=== PATIENT | female | born 1985 | race Hispanic/Latino ===

== ENCOUNTER 2017-04-09 13:08 | Emergency (ER) | payer MEDICAID ==
[2017-04-09 14:40] LABS: APPEARANCE,URINE Clear (CLEAR); BILIRUBIN,URINE Negative (NEGATIVE); COLOR,URINE Yellow (YELLOW); GLUCOSE, URINE (UA) Negative (NEGATIVE); KETONES,URINE Negative (NEGATIVE); LEUKOCYTE ESTERASE ,URINE Negative (NEGATIVE); NITRATE,URINE Positive (NEGATIVE); OCCULT BLOOD,URINE Negative (NEGATIVE); PROTEIN,URINE Negative (NEGATIVE)
[2017-04-09 14:43] LABS: HCG,QUAL RESULT NEGATIVE (NEGATIVE)
[2017-04-09 14:55] LABS: BACTERIA,URINE Many /HPF (None Seen); SQUAMOUS EPITHELIAL CELL,UR Few /LPF (0-2); WBC,URINE 0-1 /HPF (0-1)
[2017-04-09] MEDS ORDERED: KETOROLAC TROMETHAMINE 30MG/ML ONE (14:55)
== END 2017-04-09 15:03 | disposition home or self-care (01) ==
LOC: EDH 13:08
DX: S40.021A Contusion of right upper arm, initial encounter (principal); S80.11XA Contusion of right lower leg, initial encounter; Z90.49 Acquired absence of other specified parts of digestive tract; Z98.890 Other specified postprocedural states; W11.XXXA Fall on and from ladder, initial encounter; Y93.89 Activity, other specified; Y92.89 Other specified places as the place of occurrence of the external cause; Y99.8 Other external cause status
CPT/HCPCS: 81001; 81025; 96372; 99284; J1885

== ENCOUNTER 2017-06-27 13:48 | Emergency (ER) | payer MEDICAID ==
[2017-06-27 14:37] LABS: APPEARANCE,URINE Clear (CLEAR); BILIRUBIN,URINE Negative (NEGATIVE); COLOR,URINE Yellow (YELLOW); GLUCOSE, URINE (UA) Negative (NEGATIVE); KETONES,URINE Negative (NEGATIVE); LEUKOCYTE ESTERASE ,URINE Negative (NEGATIVE); NITRATE,URINE Negative (NEGATIVE); OCCULT BLOOD,URINE Trace (NEGATIVE); PH,URINE 7.5 (5.0-8.0); PROTEIN,URINE Negative (NEGATIVE)
[2017-06-27 14:39] LABS: HCG,QUAL RESULT NEGATIVE (NEGATIVE)
[2017-06-27] MEDS ORDERED: SODIUM CHLORIDE 0.9% 1000ML 1,000 ML IV ONE (14:50)
[2017-06-27] MEDS ORDERED: KETOROLAC TROMETHAMINE 30MG/ML ONE (14:50)
[2017-06-27] MEDS ORDERED: ONDANSETRON HCL MDV 20ML 2 MG/ML VIAL ONE (14:50)
[2017-06-27 14:52] LABS: BACTERIA,URINE Few /HPF (None Seen); RBC,URINE 0-1 /HPF (0-1); SQUAMOUS EPITHELIAL CELL,UR 0-2 /HPF (0-2); WBC,URINE None Seen /HPF (0-1)
[2017-06-27 14:52] LABS: BASOPHILS % (AUTO) 0.5 % (0.0-5.0); HEMATOCRIT 40.3 % (36-48); LYMPHOCYTES % (AUTO) 8.6 % (21.0-51.0); MEAN CORPUSCULAR HGB CONC 33.4 g/dL (32.0-36.0); MEAN CORPUSCULAR VOLUME 83.8 fL (79-99); MONOCYTES % (AUTO) 7.7 % (3.0-13.0); NEUTROPHILS % (AUTO) 83.2 % (40.0-77.0); PLATELET COUNT (AUTO) 259 K/uL (130-400); RED BLOOD CELL COUNT(AUTO) 4.81 MIL/uL (4.00-5.50)
[2017-06-27 15:08] LABS: CREATININE 0.7 mg/dL (0.5-1.5); POTASSIUM 3.6 mmol/L (3.5-5.1)
[2017-06-27 15:13] LABS: ALBUMIN 3.5 g/dL (3.5-5.0); BILIRUBIN,TOTAL 0.3 mg/dL (0.2-1.0); TOTAL PROTEIN, SERUM 7.6 g/dL (6.0-8.3)
== END 2017-06-27 15:43 | disposition home or self-care (01) ==
LOC: EDH 13:48
DX: B34.9 Viral infection, unspecified (principal); N94.6 Dysmenorrhea, unspecified; Z72.0 Tobacco use
CPT/HCPCS: 36415; 71045; 80053; 81001; 81025; 85025; 87040 ×2; 87088; 87804 ×2; 87880; 99285; J1885; J7030

== ENCOUNTER 2017-10-31 11:29 | Emergency (ER) | payer MEDICAID ==
[2017-10-31 12:02] LABS: APPEARANCE,URINE Clear (CLEAR); BILIRUBIN,URINE Negative (NEGATIVE); COLOR,URINE Yellow (YELLOW); GLUCOSE, URINE (UA) Negative (NEGATIVE); HCG,QUAL RESULT POSITIVE (NEGATIVE); KETONES,URINE Negative (NEGATIVE); LEUKOCYTE ESTERASE ,URINE Large (NEGATIVE); NITRATE,URINE Negative (NEGATIVE); OCCULT BLOOD,URINE Negative (NEGATIVE); PROTEIN,URINE Negative (NEGATIVE)
[2017-10-31 12:24] LABS: BACTERIA,URINE Moderate /HPF (None Seen); MUCUS,URINE Moderate LPF (None Seen); RBC,URINE 0-1 /HPF (0-1)
[2017-10-31] MEDS ORDERED: CEFTRIAXONE SODIUM 1 GM ONE (12:29)
[2017-10-31] MEDS ORDERED: SODIUM CHLORIDE 0.9% 1000ML 1,000 ML IV ONE (12:29)
[2017-10-31 12:47] LABS: CREATININE 0.5 mg/dL (0.5-1.5); POTASSIUM 3.6 mmol/L (3.5-5.1)
[2017-10-31 12:48] LABS: BASOPHILS % (AUTO) 0.5 % (0.0-5.0); HEMATOCRIT 37.6 % (36-48); LYMPHOCYTES % (AUTO) 22.3 % (21.0-51.0); MEAN CORPUSCULAR HEMOGLOBIN 29.2 pg (27.0-33.0); MEAN CORPUSCULAR HGB CONC 34.2 g/dL (32.0-36.0); MEAN CORPUSCULAR VOLUME 85.5 fL (79-99); MONOCYTES % (AUTO) 5.1 % (3.0-13.0); NEUTROPHILS % (AUTO) 72.1 % (40.0-77.0); PLATELET COUNT (AUTO) 251 K/uL (130-400); RED CELL DISTRIBUTION WIDTH 13.9 % (11.0-15.5); WHITE BLOOD COUNT (AUTO) 8.1 K/uL (4.8-10.8)
[2017-10-31] MEDS ORDERED: ONDANSETRON HCL 4 MG/2 ML VIAL ONE (13:21)
== END 2017-10-31 13:30 | disposition home or self-care (01) ==
LOC: EDH 11:29
DX: O23.41 Unspecified infection of urinary tract in pregnancy, first trimester (principal); R10.31 Right lower quadrant pain; R10.32 Left lower quadrant pain; Z87.891 Personal history of nicotine dependence; Z3A.10 10 weeks gestation of pregnancy
CPT/HCPCS: 36415; 76801; 80048; 81001; 81025; 84702; 85025; 96374; 96375; 99285; J0696; J2405; J7030

== ENCOUNTER 2017-11-27 15:13 | Emergency (ER) | payer MEDICAID ==
[2017-11-27 16:09] LABS: BASOPHILS % (AUTO) 0.1 % (0.0-5.0); EOSINOPHILS % (AUTO) 0.1 % (0.0-8.0); HEMATOCRIT 37.1 % (36-48); LYMPHOCYTES % (AUTO) 16.3 % (21.0-51.0); MEAN CORPUSCULAR HEMOGLOBIN 28.2 pg (27.0-33.0); MEAN CORPUSCULAR HGB CONC 33.5 g/dL (32.0-36.0); MEAN CORPUSCULAR VOLUME 84.1 fL (79-99); MONOCYTES % (AUTO) 3.3 % (3.0-13.0); NEUTROPHILS % (AUTO) 80.2 % (40.0-77.0); PLATELET COUNT (AUTO) 249 K/uL (130-400); RED BLOOD CELL COUNT(AUTO) 4.41 MIL/uL (4.00-5.50); RED CELL DISTRIBUTION WIDTH 13.7 % (11.0-15.5); WHITE BLOOD COUNT (AUTO) 12.8 K/uL (4.8-10.8)
[2017-11-27 16:23] LABS: APPEARANCE,URINE Clear (CLEAR); BILIRUBIN,URINE Negative (NEGATIVE); COLOR,URINE Yellow (YELLOW); GLUCOSE, URINE (UA) Negative (NEGATIVE); KETONES,URINE Negative (NEGATIVE); LEUKOCYTE ESTERASE ,URINE Small (NEGATIVE); NITRATE,URINE Negative (NEGATIVE); OCCULT BLOOD,URINE Negative (NEGATIVE); PH,URINE 5.5 (5.0-8.0); PROTEIN,URINE Negative (NEGATIVE); UROBILINOGEN,URINE 0.2 mg/dL (0.2-1.0)
[2017-11-27 16:31] LABS: BACTERIA,URINE Rare /HPF (None Seen); RBC,URINE None Seen /HPF (0-1); WBC,URINE 0-1 /HPF (0-1)
== END 2017-11-27 17:11 | disposition home or self-care (01) ==
LOC: EDH 15:13
DX: O20.0 Threatened abortion (principal); Z3A.14 14 weeks gestation of pregnancy; Z79.899 Other long term (current) drug therapy; Z90.49 Acquired absence of other specified parts of digestive tract; Z98.890 Other specified postprocedural states; Z87.891 Personal history of nicotine dependence
CPT/HCPCS: 36415; 81001; 85025

== ENCOUNTER 2018-12-05 08:19 | Emergency (ER) | payer MEDICAID, OTHER ==
[2018-12-05 09:04] LABS: APPEARANCE,URINE Clear (CLEAR); BILIRUBIN,URINE Negative (NEGATIVE); COLOR,URINE Yellow (YELLOW); GLUCOSE, URINE (UA) Negative (NEGATIVE); KETONES,URINE Negative (NEGATIVE); LEUKOCYTE ESTERASE ,URINE Negative (NEGATIVE); NITRATE,URINE Negative (NEGATIVE); OCCULT BLOOD,URINE Negative (NEGATIVE); PROTEIN,URINE Negative (NEGATIVE)
[2018-12-05 09:13] LABS: HCG,QUAL RESULT POSITIVE (NEGATIVE)
[2018-12-05 09:22] LABS: CREATININE 0.6 mg/dL (0.5-1.5); POTASSIUM 3.8 mmol/L (3.5-5.1)
[2018-12-05 09:27] LABS: ALBUMIN 3.2 g/dL (3.5-5.0); BASOPHILS % (AUTO) 0.5 % (0.0-5.0); BILIRUBIN,TOTAL 0.2 mg/dL (0.2-1.0); EOSINOPHILS % (AUTO) 2.4 % (0.0-8.0); HEMATOCRIT 37.4 % (36-48); LYMPHOCYTES % (AUTO) 21.6 % (21.0-51.0); MEAN CORPUSCULAR HEMOGLOBIN 28.4 pg (27.0-33.0); MEAN CORPUSCULAR HGB CONC 34.5 g/dL (32.0-36.0); MEAN CORPUSCULAR VOLUME 82.3 fL (79-99); MONOCYTES % (AUTO) 5.1 % (3.0-13.0); NEUTROPHILS % (AUTO) 70.4 % (40.0-77.0); PLATELET COUNT (AUTO) 314 K/uL (130-400); RED BLOOD CELL COUNT(AUTO) 4.54 MIL/uL (4.00-5.50); RED CELL DISTRIBUTION WIDTH 14.8 % (11.0-15.5); TOTAL PROTEIN, SERUM 7.4 g/dL (6.0-8.3); WHITE BLOOD COUNT (AUTO) 11.7 K/uL (4.8-10.8)
== END 2018-12-05 11:25 | disposition home or self-care (01) ==
LOC: EDH 08:19
DX: O26.891 Other specified pregnancy related conditions, first trimester (principal); K59.00 Constipation, unspecified; Z98.890 Other specified postprocedural states; Z90.49 Acquired absence of other specified parts of digestive tract; Z3A.01 Less than 8 weeks gestation of pregnancy
CPT/HCPCS: 36415; 76705; 76801; 80053; 81003; 81025; 83690; 84702; 85025

== ENCOUNTER 2019-01-02 15:37 | Emergency (ER) | payer MEDICAID, OTHER ==
[2019-01-02 16:36] LABS: APPEARANCE,URINE Cloudy (CLEAR); BILIRUBIN,URINE Negative (NEGATIVE); COLOR,URINE Yellow (YELLOW); GLUCOSE, URINE (UA) Negative (NEGATIVE); KETONES,URINE Trace mg/dL (NEGATIVE); LEUKOCYTE ESTERASE ,URINE Small (NEGATIVE); NITRATE,URINE Negative (NEGATIVE); OCCULT BLOOD,URINE Negative (NEGATIVE); PH,URINE 5.5 (5.0-8.0); PROTEIN,URINE Negative (NEGATIVE)
[2019-01-02 16:38] LABS: HCG,QUAL RESULT POSITIVE (NEGATIVE)
[2019-01-02 16:39] LABS: BASOPHILS % (AUTO) 0.3 % (0.0-5.0); HEMATOCRIT 39.6 % (36-48); LYMPHOCYTES % (AUTO) 15.8 % (21.0-51.0); MEAN CORPUSCULAR HEMOGLOBIN 27.3 pg (27.0-33.0); MEAN CORPUSCULAR HGB CONC 33.4 g/dL (32.0-36.0); MEAN CORPUSCULAR VOLUME 81.8 fL (79-99); MONOCYTES % (AUTO) 3.9 % (3.0-13.0); PLATELET COUNT (AUTO) 323 K/uL (130-400); RED BLOOD CELL COUNT(AUTO) 4.83 MIL/uL (4.00-5.50); RED CELL DISTRIBUTION WIDTH 14.4 % (11.0-15.5); WHITE BLOOD COUNT (AUTO) 12.6 K/uL (4.8-10.8)
[2019-01-02 16:43] LABS: CREATININE 0.5 mg/dL (0.5-1.5); POTASSIUM 3.4 mmol/L (3.5-5.1)
[2019-01-02 16:44] LABS: AMPHET/METH SCREEN,URINE NEGATIVE (NEGATIVE); BACTERIA,URINE Few /HPF (None Seen); BARBITURATE SCREEN, URINE NEGATIVE (NEGATIVE); BENZODIAZEPINES SCREEN,URINE NEGATIVE (NEGATIVE); CANNABINOID SCREEN,URINE NEGATIVE (NEGATIVE); COCAINE SCREEN,URINE NEGATIVE (NEGATIVE); MUCUS,URINE Moderate LPF (None Seen); OPIATE SCREEN,URINE NEGATIVE (NEGATIVE); PHENCYCLIDINE SCREEN,URINE NEGATIVE (NEGATIVE); SQUAMOUS EPITHELIAL CELL,UR 0-2 /HPF (0-2)
[2019-01-02 16:47] LABS: ALBUMIN 3.1 g/dL (3.5-5.0); BILIRUBIN,TOTAL 0.3 mg/dL (0.2-1.0); TOTAL PROTEIN, SERUM 7.6 g/dL (6.0-8.3)
== END 2019-01-02 16:59 | disposition home or self-care (01) ==
LOC: EDH 15:37
DX: O99.341 Other mental disorders complicating pregnancy, first trimester (principal); F41.1 Generalized anxiety disorder; F45.8 Other somatoform disorders; R06.02 Shortness of breath; Z90.49 Acquired absence of other specified parts of digestive tract; Z3A.10 10 weeks gestation of pregnancy
CPT/HCPCS: 36415; 80053; 80305; 81001; 81025; 83690; 85025

== ENCOUNTER 2019-07-18 05:42 | Inpatient (IN) | payer MEDICAID ==
[~2019-07-18] VITALS: Ht 165.1 cm; Wt 111.1 kg
[2019-07-18] MEDS ORDERED: CEFAZOLIN SODIUM 1 GM VIAL IVP PRN (06:15)
[2019-07-18] MEDS ORDERED: LACTATED RINGERS 1000ML 1,000 ML IV SCH (06:15)
[2019-07-18 06:27] LABS: HEMATOCRIT 32.3 % (36-48); MEAN CORPUSCULAR VOLUME 74.4 fL (79-99); PLATELET COUNT (AUTO) 331 K/uL (130-400); RED BLOOD CELL COUNT(AUTO) 4.34 MIL/uL (4.00-5.50); RED CELL DISTRIBUTION WIDTH 16.3 % (11.0-15.5); WHITE BLOOD COUNT (AUTO) 13.6 K/uL (4.8-10.8)
[2019-07-18 06:53] LABS: APPEARANCE,URINE CLEAR (CLEAR); BILIRUBIN,URINE NEGATIVE (NEGATIVE); COLOR,URINE YELLOW (YELLOW); GLUCOSE, URINE (UA) NEGATIVE (NEGATIVE); KETONES,URINE NEGATIVE (NEGATIVE); LEUKOCYTE ESTERASE ,URINE SMALL (NEGATIVE); NITRATE,URINE NEGATIVE (NEGATIVE); OCCULT BLOOD,URINE NEGATIVE (NEGATIVE); PROTEIN,URINE NEGATIVE (NEGATIVE); UROBILINOGEN,URINE 0.2 mg/dL (0.2-1.0)
[2019-07-18] MEDS ORDERED: METOCLOPRAMIDE 10 MG/2 ML VIAL IVP SCH (07:09)
[2019-07-18] MEDS ORDERED: CITRIC ACID/SODIUM CITRATE 30 ML UDCUP PO SCH (07:09)
[2019-07-18] MEDS ORDERED: OXYTOCIN-LR 20 UNITS/1000 ML 2,000 ML IV ONE (07:11)
[2019-07-18] MEDS ORDERED: CALDOLOR 800MG+NS 250ML 250 ML IV ONE (07:12)
[2019-07-18] MEDS ORDERED: CALDOLOR 800MG+NS 250ML 250 ML IV PRN (07:15)
[2019-07-18] MEDS ORDERED: DURAMORPH PF1 MG/ML 10ML AMP IV ONE (07:16)
[2019-07-18] MEDS ORDERED: ONDANSETRON HCL 4 MG/2 ML VIAL ONE (07:17)
[2019-07-18] MEDS ORDERED: FENTANYL CITRATE PF 50 MCG/1 ML 2ML VIAL ONE (07:17)
[2019-07-18 07:44] LABS: BACTERIA,URINE Rare /HPF (None Seen); RBC,URINE 0-1 /HPF (0-1); WBC,URINE 0-1 /HPF (0-1)
[2019-07-18] MEDS ORDERED: PHENYLEPHRINE HCL 10 MG/ML 1ML VIAL IV ONE (09:46)
[2019-07-18] MEDS ORDERED: MEPERIDINE-PF 75 MG/ML SYG IM PRN (10:30)
[2019-07-18] MEDS ORDERED: SODIUM CHLORIDE 0.9% 10 ML VIAL IVP PRN (10:30)
[2019-07-18] MEDS ORDERED: OXYTOCIN-LR 20 UNITS/1000 ML 1,000 ML IV PRN (10:30)
[2019-07-18] MEDS ORDERED: DEXTROSE 5 %-0.45 % NACL 1,000 ML IV PRN (10:30)
[2019-07-18] MEDS ORDERED: PROMETHAZINE HCL 25 MG/ML 1ML AMPULE IM PRN (10:30)
[2019-07-18] MEDS ORDERED: ONDANSETRON HCL 4 MG/2 ML VIAL IVP PRN (11:30)
[2019-07-18] MEDS ORDERED: NALOXONE HCL 0.4 MG/1 ML ML IVP PRN ×2 (11:30)
[2019-07-18 12:00] VITALS: BP 134/76
[2019-07-18 14:12] LABS: RAPID PLASMA REAGIN NONREACTIVE (NONREACTIVE)
[2019-07-18 16:33] VITALS: BP 143/85
[2019-07-18] MEDS: DiphenhydrAMINE HCL 50 MG/ML VIAL IVP PRN (16:44)
[2019-07-18] MEDS ORDERED: PNV#1COM14 PO (17:59)
[2019-07-18] MEDS: CALDOLOR 800MG+NS 250ML 250 ML IV SCH (18:05)
[2019-07-18] MEDS ORDERED: HYDROCODONE/ACETAMINOPHEN 5/325 MG TAB PO PRN (18:45)
[2019-07-18] MEDS ORDERED: LANOLIN 30GM OINTMENT TP PRN (18:45)
[2019-07-18] MEDS ORDERED: BISACODYL 10 MG SUPP.RECT RC PRN (18:45)
[2019-07-18] MEDS ORDERED: ACETAMINOPHEN-CODEINE 300/30MG TAB PO PRN (18:45)
[2019-07-18] MEDS ORDERED: ACETAMINOPHEN EXTRA STRENGTH 500 MG TABLET PO PRN (18:45)
[2019-07-18 19:32] VITALS: BP 126/54
[2019-07-18] MEDS: DOCUSATE SODIUM 100 MG CAP PO SCH (20:40)
[2019-07-18 23:23] VITALS: BP 113/69
[2019-07-19] MEDS: CALDOLOR 800MG+NS 250ML 250 ML IV SCH (02:24)
[2019-07-19 03:27] VITALS: BP 127/70
[2019-07-19] MEDS: DiphenhydrAMINE HCL 50 MG/ML VIAL IVP PRN (05:03)
--- NOTE | 2019-07-19 05:03 | NUR ---
PT. MED FOR C/O ITCHING; NO REDNESS OR RASHES NOTED ON SKIN.
--- NOTE | 2019-07-19 05:59 | NUR ---
PT SLEEPY, DENIED FURTHER ITCHING.
--- NOTE | 2019-07-19 06:30 | NUR ---
CHARMAINE GILES, PT. INST TO CALL FOR ASSIST BEFORE GETTING OUT OF BED, VERBALIZED UNDERSTANDING. Addendum: 07/19/19 at 0642 by TRUDI NIEVES RN RN Amended: Links added.
[2019-07-19 07:07] LABS: HEMATOCRIT 28.2 % (36-48); MEAN CORPUSCULAR HEMOGLOBIN 23.4 pg (27.0-33.0); MEAN CORPUSCULAR HGB CONC 30.9 g/dL (32.0-36.0); MEAN CORPUSCULAR VOLUME 75.8 fL (79-99); RED BLOOD CELL COUNT(AUTO) 3.72 MIL/uL (4.00-5.50); RED CELL DISTRIBUTION WIDTH 16.2 % (11.0-15.5); WHITE BLOOD COUNT (AUTO) 10.8 K/uL (4.8-10.8)
[2019-07-19 07:15] LABS: HEPATITIS Bs ANTIGEN SCREEN P Negative (Negative)
[2019-07-19 07:37] VITALS: BP 130/72
[2019-07-19] MEDS: SIMETHICONE 80 MG TAB.CHEW PO PRN ×2 (09:41→16:35)
[2019-07-19] MEDS: DOCUSATE SODIUM 100 MG CAP PO SCH (09:41)
[2019-07-19] MEDS: IBUPROFEN 800 MG TAB PO PRN ×2 (09:41→16:36)
[2019-07-19] MEDS ORDERED: IBUPROFEN 600 MG TABLET PO PRN (11:00)
[2019-07-19 11:48] VITALS: BP 143/90
--- NOTE | 2019-07-19 13:30 | NUR ---
DR. SMITH ROUNDED AND DISCHARGED PATIENT TO HOME. PATIENT IS STABLE AND DENIES PAIN.
[2019-07-19 16:23] VITALS: BP 145/87
--- NOTE | 2019-07-19 16:30 | NUR ---
C/O HAVING PAIN OF 4-5 AND WAS MEDICATED WITH MOTRIN 800GMS. STATES FEELING A SLIGHT HEADACHE.
--- NOTE | 2019-07-19 17:30 | NUR ---
DISCHARGE INSTRUCTIONS GIVEN AND VERBALIZED UNDERSTANDING INSTRUCTIONS. SCRIPT FOR PAIN MANAGEMENT ISSUED AND INSTRUCTED ON DOSAGE AND FREQUENCY OF MEDICATION. PATIENT STABLE AND STATES DOING BETTER WITH PAIN AFTER MEDICATED WITH MOTRIN. PATIENT IN BED FEEDING BABY.
--- NOTE | 2019-07-19 18:25 | NUR ---
PATIENT WAS TAKEN VIA W/C CARRYING BABY IN ARMS TO FAMILY VEHICLE AND WAS DISCHARGED TO HER SIGNIFICANT OTHER IN STABLE CONDITION.
== END 2019-07-19 18:25 | disposition home or self-care (01) | DRG 539 ==
LOC: LDH 05:42 → EDSTATUS 07:00 → WSH 11:51
PROVIDERS: ADMIT Obstetrics & Gynecology; ATTEND Obstetrics & Gynecology
PROC: 0UB50ZZ Excision of Right Fallopian Tube, Open Approach (ICD-10-PCS; 2019-07-18)
PROC: 10D00Z1 Extraction of Products of Conception, Low, Open Approach (ICD-10-PCS; principal; 2019-07-18 07:00)
DX: O34.211 Maternal care for low transverse scar from previous cesarean delivery (principal); K21.9 Gastro-esophageal reflux disease without esophagitis; O99.62 Diseases of the digestive system complicating childbirth; Z37.0 Single live birth; Z3A.39 39 weeks gestation of pregnancy; Z30.2 Encounter for sterilization
CPT/HCPCS: 36415; 59510; 81001; 85027; 86592; 86701; 86850; 86900; 86901; 87340; 87390; 88302; A4344; G0378; J0690; J1200; J1741; J2274; J2370; J2405; J2590; J3010; J7120

== ENCOUNTER 2020-08-27 15:59 | Emergency (ER) | payer MEDICAID ==
[~2020-08-27] VITALS: Ht 165.1 cm; Wt 97.5 kg
[~2020-08-27 15:59] MED LIST: PNV#1COM14 PO
[2020-08-27 16:01] VITALS: BP 155/92
[2020-08-27 16:55] VITALS: BP 163/93
[2020-08-27 17:23] LABS: APPEARANCE,URINE Clear (CLEAR); BILIRUBIN,URINE Negative (NEGATIVE); COLOR,URINE Yellow (YELLOW); GLUCOSE, URINE (UA) Negative (NEGATIVE); KETONES,URINE Negative (NEGATIVE); LEUKOCYTE ESTERASE ,URINE Trace (NEGATIVE); NITRATE,URINE Negative (NEGATIVE); OCCULT BLOOD,URINE Large (NEGATIVE); PH,URINE 7.5 (5.0-8.0); PROTEIN,URINE Negative (NEGATIVE)
[2020-08-27 17:25] LABS: HCG,QUAL RESULT NEGATIVE (NEGATIVE)
[2020-08-27 17:26] VITALS: BP 133/84
[2020-08-27 17:42] LABS: BACTERIA,URINE Few /HPF (None Seen); RBC,URINE None Seen /HPF (0-1); SQUAMOUS EPITHELIAL CELL,UR 0-2 /HPF (0-2); WBC,URINE 0-1 /HPF (0-1)
[2020-08-27] MEDS ORDERED: AMOX-429 PO (17:51)
[2020-08-27] MEDS ORDERED: FEXO180T94 PO (17:51)
[2020-08-27] MEDS ORDERED: ACETAMINOPHEN 500 MG TABLET PO ONE (18:00)
== END 2020-08-27 18:02 | disposition home or self-care (01) ==
LOC: EDH 15:59
DX: J32.1 Chronic frontal sinusitis (principal); J06.9 Acute upper respiratory infection, unspecified; Z72.0 Tobacco use; Z20.822 Contact with and (suspected) exposure to COVID-19; Z90.721 Acquired absence of ovaries, unilateral; Z98.890 Other specified postprocedural states; Z79.899 Other long term (current) drug therapy
CPT/HCPCS: 71045; 81001; 81025; 87635; 87804 ×2; 99284; C9803

== ENCOUNTER 2021-11-09 18:17 | Emergency (ER) | payer MEDICAID ==
[~2021-11-09] VITALS: Ht 162.6 cm; Wt 89.4 kg
[~2021-11-09 18:17] MED LIST changes: +AMOX-429 PO; +FEXO180T94 PO
[2021-11-09] MEDS ORDERED: IBUP-1493 PO (20:50)
[2021-11-09] MEDS ORDERED: PRED20TA3 PO (20:50)
[2021-11-09 21:04] VITALS: BP 133/87
== END 2021-11-09 21:07 | disposition home or self-care (01) ==
LOC: EDH 18:17
DX: U07.1 COVID-19 (principal); Z90.49 Acquired absence of other specified parts of digestive tract
CPT/HCPCS: 99283; 87635; 87880; 87804 ×2; C9803

== ENCOUNTER → 2021-11-28 | Outpatient (CLI) | payer MEDICAID ==
[~2021-11-28] MED LIST changes: +IBUP-1493 PO; +PRED20TA3 PO
== END | disposition home or self-care (01) ==
LOC: RAH 13:57
DX: R22.1 Localized swelling, mass and lump, neck (principal)
CPT/HCPCS: 76536

== ENCOUNTER 2021-12-12 13:12 | Emergency (ER) | payer MEDICAID ==
[~2021-12-12] VITALS: Ht 162.6 cm; Wt 87.1 kg
[2021-12-12] MEDS ORDERED: ACETAMINOPHEN 160 MG/5ML UDCUP PO ONE (14:30)
[2021-12-12] MEDS ORDERED: DEXAMETHASONE SOD PHOSPHATE 4 MG/ML 1ML VIAL IVP ONE (14:30)
[2021-12-12] MEDS ORDERED: PENICILLIN G BENZATHINE LA 1.2 MILUNITS/2 ML SYG IM ONE (14:30)
[2021-12-12] MEDS ORDERED: KETOROLAC 30MG VIAL (30MG/ML) IM ONE (14:30)
[2021-12-12 14:58] LABS: HCG,QUALITATIVE URINE NEGATIVE (NEGATIVE)
[2021-12-12] MEDS ORDERED: IBUP-2070 PO (15:21)
[2021-12-12] MEDS ORDERED: ONDA4TAB10 PO (15:21)
[2021-12-12] MEDS ORDERED: OSEL75 PO (15:21)
[2021-12-12 15:37] LABS: APPEARANCE,URINE CLEAR (CLEAR); BILIRUBIN,URINE NEGATIVE (NEGATIVE); COLOR,URINE YELLOW (YELLOW); GLUCOSE, URINE (UA) NEGATIVE (NEGATIVE); KETONES,URINE >=80 mg/dL (NEGATIVE); LEUKOCYTE ESTERASE ,URINE NEGATIVE Leu/uL (NEGATIVE); NITRATE,URINE NEGATIVE (NEGATIVE); OCCULT BLOOD,URINE LARGE (NEGATIVE); PROTEIN,URINE 70 mg/dL (NEGATIVE)
[2021-12-12 15:56] LABS: BACTERIA,URINE Rare /HPF (None Seen); RBC,URINE None Seen /HPF (0-1); SQUAMOUS EPITHELIAL CELL,UR Rare /HPF (0-2); WBC,URINE 0-1 /HPF (0-1)
[2021-12-12 16:09] VITALS: BP 132/78
== END 2021-12-12 16:11 | disposition home or self-care (01) ==
LOC: EDH 13:12
DX: J10.1 Influenza due to other identified influenza virus with other respiratory manifestations (principal); J02.0 Streptococcal pharyngitis; Z20.822 Contact with and (suspected) exposure to COVID-19; Z79.1 Long term (current) use of non-steroidal anti-inflammatories (NSAID); Z79.52 Long term (current) use of systemic steroids
CPT/HCPCS: 99284; 96374; 87635; 87880; 87804 ×2; 81001; 81025; 96372 ×2; J0561; J1100; C9803; J1885

== ENCOUNTER 2024-10-15 23:13 | Emergency (ER) | payer BC, MEDICAID ==
[~2024-10-15] VITALS: Ht 162.6 cm; Wt 95.7 kg
[~2024-10-15 23:13] MED LIST changes: +IBUP-1492 PO; +ONDA-243 PO; +OSEL75 PO
[2024-10-15 23:14] VITALS: TEMP 99
[2024-10-16] MEDS ORDERED: ONDA-243 PO (00:37)
[2024-10-16] MEDS ORDERED: AMOX-426 PO (00:37)
--- NOTE | 2024-10-16 00:38 | ERN ---
General Chief Complaint: FOOT INJURY/PAIN Stated Complaint: C/O PAIN TO RIGHT FOOT; STEPPED ON NAILS Time Seen by MD: 23:19 Source: patient History of Present Illness Initial Comments Patient was walking outdoors wearing sandals when she stepped on a board that had two large nails sticking out of it. The nails went through her sandal and into her foot causing a lot of bleeding and pain. She does not know when when she last had a tetanus shot. Allergies: Coded Allergies: iodine (Unverified Allergy, Unknown, HIVES, 10/15/24) Home Meds Active Scripts Ondansetron (Ondansetron Odt) 4 Mg Tab.rapdis, 4 MG PO TID PRN for NAUSEA/VOMITING, #10 TAB Prov:NIECY RO [facility] 12/12/21 Ibuprofen (Ibuprofen) 600 Mg Tablet, 600 MG PO Q6H PRN for PAIN, #15 TAB Prov:NIECY ROP 12/12/21 Oseltamivir Phosphate (Tamiflu) 75 Mg Cap, 75 MG PO BID, #10 CAP Prov:NIECY ROP 12/12/21 Prednisone (Prednisone) 20 Mg Tablet, 1 TAB PO AD for 6 Days, #14 TAB 0 Refills TAKE 1 TAB BY MOUTH THREE TIMES PER DAY X3 DAYS, THEN TAKE 1 TAB BY MOUTH TWICE A DAY X2 DAYS, THEN TAKE 1 TAB BY MOUTH ONCE A DAY X1 DAY. Prov:GONZALO WALL MD 11/09/21 Ibuprofen (Motrin/Advil) 800 Mg Tab, 800 MG PO TIDP, #30 TAB Prov:GONZALO WALL MD 11/09/21 Fexofenadine HCl (Debora Allergy) 180 Mg Tablet, 180 MG PO DAILY, #30 TAB Prov:HEATHER BARDALES 08/27/20 Amoxicillin/Potassium Clav (Augmentin 875-125 Tablet) 1 Each Tablet, 1 EACH PO BID, #20 TAB Prov:HEATHER BARDALES 08/27/20 Reported Medications Pnv#75/Iron Fum/FA/Om3/Dha/Epa (One A Day Dha Pack) 1 Each Combo..pkg, 1 EACH PO DAILY, COMB.PKG 07/18/19 Past Medical History Past Medical History: Seizure, Other Medical History Other: HX OF EPILEPSY Past Surgical History: Other Surgical History Other: BREAST CYST X2, RT OOPHERECTOMY Family History Family History: Negative Social History Social History: Negative Female( History) LMP: Oct 01, 2024 ROS Dictation Review of systems are negative beyond the pain in her right foot. Physical Exam Extremities Comment Right foot has two puncture wounds consistent with nails breaking the skin. MDM Plain films of the right foot are negative for foreign bodies. Gave the patient IM injection of Toradol and tetanus. I will give her an IV dose of Zosyn, here in the ED and discharge her with a prescription for Augmentin and Zofran. We will put her in a walking boot for comfort. ED Course Orders Procedure Category Date Status Time Foot Comp 3+Vws Rt RAD 10/15/24 Taken 23:20 Tetanus,Diphtheria PHA 10/15/24 Complete Tox [Adult] (Diphther 23:30 Ketorolac 60mg/2ml PHA 10/15/24 Complete (Toradol 60mg/2ml) 23:30 Current Medications Medications (Trade) Dose Ordered Sig/Radha Route PRN Reason Start Time Stop Time Status Last Admin Dose Admin Ketorolac Tromethamine (toRADol 60MG/ 2ML) 60 mg ONCE ONCE IM 10/15/24 23:30 10/15/24 23:31 DC 10/15/24 23:54 Tetanus/ Diphtheria Toxoids Adsorbed (DiphthERIA-teTANUS TOXOID [ADULT]/ DECAVAC) 0.5 ml ONCE ONCE IM 10/15/24 23:30 10/15/24 23:31 DC 10/15/24 23:54 Vital Signs Date Time Temp Pulse Resp B/P (MAP) Pulse Ox O2 Delivery O2 Flow Rate FiO2 10/15/24 23:14 99.0 91 20 138/93 97 Room Air DX & DISP Disposition: Discharge Departure Impression: Primary Impression: Nail wound of right foot Condition: Stable Scripts Amoxicillin/Potassium Clav (Augmentin 500-125 Tablet) 500 Mg-125 Mg Tablet 1 TAB PO BID for 7 Days, #14 TAB 0 Refills Prov: DANISH HALL MD 10/16/24 Ondansetron (Ondansetron Odt) 4 Mg Tab.rapdis 4 MG PO QIDP PRN for nausea, #15 TAB Prov: DANISH HALL MD 10/16/24 Additional Instructions: You suffered a nail injury to your right foot. I have given you a tetanus shot as well as a pain medication and an antibiotic. I will send prescriptions for an antibiotic and a medicine to keep her stomach from getting upset when you take the antibiotic to your pharmacy. Please return to the emergency room if the foot gets more swollen more red more tender or if you start having fevers as these are all signs of an infection. Please follow-up with your primary care physician in a week or so to be sure things are healing well. Referrals: SELF,REFERRAL (PCP) DANISH HALL MD Oct 16, 2024 00:38
[2024-10-16] MEDS: ZOSYN 3.375GM +NS 50ML IV STA (00:53)
--- NOTE | 2024-10-16 01:12 | NUR ---
PLACED ON RIGHT FOOT [facility].
--- NOTE | 2024-10-16 01:14 | HMCIMG ---
EXAM: CR Right Foot, 3 views. CLINICAL HISTORY: Stepped on a nail. COMPARISON: None provided. FINDINGS: No acute fracture or aggressive appearing osseous lesion. Mild osteoarthritis, hallux valgus deformity, and bunion formation at the first metatarsophalangeal joint. Small distal Achilles enthesopathy. Mild diffuse soft tissue swelling. No radiopaque foreign body is evident. IMPRESSION: No acute bony abnormality is evident. No radiopaque foreign body is evident. Mild osteoarthritis, hallux valgus deformity, and bunion formation at the first metatarsophalangeal joint. /Rebecca
[2024-10-16 01:28] VITALS: BP 134/89; PULSE 89; RESP 17; O2SAT 98
== END 2024-10-16 01:38 | disposition home or self-care (01) ==
LOC: EDH 23:13
DX: S91.331A Puncture wound without foreign body, right foot, initial encounter (principal); Z88.8 Allergy status to other drugs, medicaments and biological substances; W45.0XXA Nail entering through skin, initial encounter; Y92.89 Other specified places as the place of occurrence of the external cause; Y93.01 Activity, walking, marching and hiking; Y99.8 Other external cause status
CPT/HCPCS: 99284; 90714; 73630; 96372; 90471; 96374; J1885; J2543